=== PATIENT | male | born 1980 | race African-American/Black ===

== ENCOUNTER 2023-09-17 11:16 | Emergency (ER) | payer MEDICAID ==
[~2023-09-17] VITALS: Ht 177.8 cm; Wt 70.2 kg
[2023-09-17] MEDS ORDERED: ketorolac trometh inj. 60 MG/2 ML VIAL IM ONE (13:05)
[2023-09-17] MEDS ORDERED: PRED20TA PO (13:13)
[2023-09-17 14:18] VITALS: BP 144/74; PULSE 78; RESP 18; TEMP 97.9; O2SAT 98
== END 2023-09-17 14:19 | disposition home or self-care (01) ==
LOC: ER 11:16
DX: M25.552 Pain in left hip (principal)
CPT/HCPCS: 73030; 96372; 99283; J1885; A4565